=== PATIENT | female | born 1995 | race Two or more races ===

== ENCOUNTER 2016-09-22 23:26 | Emergency (ER) | payer SELFPAY ==
--- NOTE | 2016-09-22 23:30 | NUR ---
CALLED PT NAME X3. PT NOT IN ROOM AT THIS TIME.
--- NOTE | 2016-09-23 00:03 | NUR ---
CALLED PT NAME X 3. PER ADMITTING. PT LEFT.
--- NOTE | 2016-09-23 00:13 | NUR ---
PT LEFT WITHOUT BEING SEEN BY . DR. TIGIST NORTH.
== END 2016-09-23 00:14 | disposition left against medical advice (07) ==
LOC: ER 23:28
DX: Z53.21 Procedure and treatment not carried out due to patient leaving prior to being seen by health care provider (principal)